=== PATIENT | female | born 1990 | race African-American/Black ===

== ENCOUNTER 2020-05-17 17:45 | Emergency (ER) | payer MEDICAID ==
[~2020-05-17] VITALS: Ht 162.6 cm; Wt 113.0 kg
[2020-05-17] MEDS ORDERED: HYDROCODONE/ACETAMINOPHEN 5/325MG TABLET PO ONE (19:15)
[2020-05-17 19:26] VITALS: BP 133/94
== END 2020-05-17 20:46 | disposition home or self-care (01) ==
LOC: ER 17:45
DX: R51 Headache (principal); V49.9XXA Car occupant (driver) (passenger) injured in unspecified traffic accident, initial encounter; Y93.9 Activity, unspecified; Y92.488 Other paved roadways as the place of occurrence of the external cause
CPT/HCPCS: 70486; 71045; 81025; 99285